=== PATIENT | female | born 1975 | race Caucasian/White ===

== ENCOUNTER 2024-01-12 17:01 | Emergency (ER) | payer OTHER ==
[~2024-01-12] VITALS: Ht 175.3 cm; Wt 76.3 kg
[2024-01-12 17:03] VITALS: BP 129/80; TEMP 97.9; O2SAT 99
[2024-01-12] MEDS ORDERED: LIDOCAINE 2% W/EPINEPHRINE 20ML VIAL **PRES FREE As Ordered ONE (17:53)
[2024-01-12] MEDS: LIDOCAINE 2% MDV 20ML VIAL SC ONE (17:55)
[2024-01-12] MEDS ORDERED: CEPH500C PO (18:52)
[2024-01-12] MEDS: CEPHALEXIN 500 MG CAP PO ONE (18:53)
== END 2024-01-12 19:26 | disposition home or self-care (01) ==
LOC: M ED 17:01
DX: N75.0 Cyst of Bartholin's gland (principal); Z91.013 Allergy to seafood; Z79.2 Long term (current) use of antibiotics